=== PATIENT | female | born 1965 ===

== ENCOUNTER 2018-04-08 14:39 | Emergency (ER) | payer OTHER ==
[~2018-04-08] VITALS: Ht 160 cm; Wt 55.3 kg
[~2018-04-08 14:39] MED LIST: ASPIR-LOW81 MG; ATORVASTATIN CA80 MG; LISINOPRIL2.5 MG; PLAVIX75 MG; TOPROL XL25 M1
[2018-04-08] MEDS ORDERED: LEVOTHYROXINE25 MCG PO (15:08)
== END 2018-04-08 17:35 | disposition home or self-care (01) ==
LOC: ER 14:39
DX: L60.0 Ingrowing nail (principal)

== ENCOUNTER → 2018-05-02 | Emergency (ER) | payer OTHER ==
[~2018-05-02] VITALS: Ht 157.5 cm; Wt 50.8 kg
[~2018-05-02] MED LIST changes: +LEVOTHYROXINE25 MCG PO
== END | disposition home or self-care (01) ==
LOC: ER 20:56
DX: H10.89 Other conjunctivitis (principal); J06.9 Acute upper respiratory infection, unspecified